=== PATIENT | female | born 1945 | race Caucasian/White ===

== ENCOUNTER 2017-01-05 16:12 | Emergency (ER) | payer MEDICARE, OTHER | END 2017-01-05 18:50 | disposition home or self-care (01) | DX: R55 Syncope and collapse (principal); R03.0 Elevated blood-pressure reading, without diagnosis of hypertension; E11.9 Type 2 diabetes mellitus without complications; Z86.2 Personal history of diseases of the blood and blood-forming organs and certain disorders involving the immune mechanism ==

== ENCOUNTER 2020-02-04 14:53 | Emergency (ER) | payer MEDICARE, OTHER ==
[2020-02-04 15:02] VITALS: BP 156/96
--- NOTE | 2020-02-04 15:24 | ED Physician Documentation ---
PD HPI UPPER EXT INJURY - Stated complaint Stated Complaint: RT HAND PX - Chief complaint Chief Complaint: Ext Problem - History obtained from History obtained from: Patient - History of Present Illness Location: Right, Hand Timing - details: Gradual onset Pain level max: 4 Pain level now: 3 Improved by: Rest Worsened by: Moving, Palpating Associated symptoms: No: Weakness, Numbness, Tingling, Swelling, Discolored Contributing factors: No: Anticoagulated - Additonal information Additional information: 74-year-old female states that she has had a right hand pain for the past month or so. She states that she saw her doctor who thought it might be trigger finger. She is concerned there may be something broken in her hand that she does not know about. Worse with movement and better with rest. She states she is put a splint on it at night which seems to help somewhat. Most of the pain is at the fourth MCP joint. No swelling. No erythema. Does not recall any trauma. Patient is right-handed Review of Systems Constitutional: denies: Fever, Chills GI: denies: Vomiting PD PAST MEDICAL HISTORY - Past Medical History Past Medical History: No - Past Surgical History Past Surgical History: No - Present Medications Home Medications: Ambulatory Orders Medication Instructions Recorded Confirmed Meloxicam [Mobic] 7.5 mg PO BID PRN #20 tablet 02/04/20 - Allergies Allergies/Adverse Reactions: Allergies Allergy/AdvReac Type Severity Reaction Status Date / Time Penicillins Allergy Unknown Verified 01/05/17 16:25 tetracycline Allergy Unknown Verified 01/05/17 16:25 - Living Situation Living Situation: reports: With family Living Arrangement: reports: At home PD ED PE NORMAL - Vitals Vital signs reviewed: Yes - General General: Alert and oriented X 3, No acute distress - HEENT HEENT: Moist mucous membranes - Derm Derm: Warm and dry - Extremities Extremities: Other (Right hand - No deformity. Mild tenderness near the fourth metacarpal phalangeal joint. Neurovascular intact.) - Neuro Neuro: Alert and oriented X 3 - Psych Psych: Normal mood, Normal affect Results - Vitals Vitals: Vital Signs - 24 hr 02/04/20 14:59 Temperature 36.3 C L Heart Rate 64 Respiratory 16 Rate Blood Pressure 156/96 H O2 Saturation 96 Oxygen O2 Source Room air - Rads (name of study) Right hand x-ray Radiology: Prelim report reviewed, EMP read contemporaneously, See rad report (Arthritis of the right hand) PD MEDICAL DECISION MAKING - ED course Complexity details: reviewed results, re-evaluated patient, considered differential, d/w patient ED course: 74-year-old female with what appears to be osteoarthritis of the right hand. No acute findings on x-ray. Will place on meloxicam. Patient counseled regarding signs and symptoms for which I believe and urgent re-evaluation would be necessary. Patient with good understanding of and agreement to plan and is comfortable going home at this time This document was made in part using voice recognition software. While efforts are made to proofread this document, sound alike and grammatical errors may occur. Departure - Departure Disposition: 01 Home, Self Care Clinical Impression: Osteoarthritis Qualifiers: Osteoarthritis location: hand Osteoarthritis type: unspecified Laterality: right Qualified Code(s): M19.041 - Primary osteoarthritis, right hand Condition: Good Instructions: ED Degenerative Joint Disease Follow-Up: ISABEL GARCIA MD [Primary Care Provider] - Within 1 week Prescriptions: Meloxicam [Mobic] 7.5 mg PO BID PRN #20 tablet PRN Reason: Pain Comments: Use the medications as prescribed. See if this helps her symptoms. You do appear to have arthritis in the hand. Discharge Date/Time: 02/04/20 15:58
--- NOTE | 2020-02-04 15:41 | XRAY Report ---
Reason: R hand pain Procedure Date: 02/04/2020 Accession Number: [id number] / [id number] Procedure: XR - Hand 3 View RT CPT Code: Final Report FULL RESULT: EXAM: RIGHT HAND RADIOGRAPHY EXAM DATE: 02/04/2020 03:29 PM. CLINICAL HISTORY: Right hand pain. COMPARISON: None. TECHNIQUE: 3 views. FINDINGS: Generalized bone demineralization. No fracture or subluxation identified. Mild narrowing of the interphalangeal joints throughout the hand. Mild narrowing of the first carpometacarpal articulation. Cystic change within the scaphoid. Mild narrowing of the radiocarpal articulation. No subcutaneous radiopaque foreign bodies. IMPRESSION: Mild degenerative changes throughout the hand. RADIA
== END 2020-02-04 15:58 | disposition home or self-care (01) ==
LOC: ED 14:53
DX: M19.041 Primary osteoarthritis, right hand (principal)
CPT/HCPCS: 99283; 99284

== ENCOUNTER 2021-04-03 08:00 | Outpatient (CLI) | payer MEDICARE, OTHER ==
--- NOTE | 2021-04-04 10:35 | XRAY Report ---
PROCEDURE: Hand 3 View RT INDICATIONS: SPRAIN OF RIGHT HAND TECHNIQUE: 3 views of the hand(s) acquired. COMPARISON: X-ray hand 02/04/2020 FINDINGS: Bones: No fractures or dislocations. No suspicious bony lesions. Scattered IP degenerative changes are present. Soft tissues: No suspicious soft tissue calcifications. IMPRESSION: Arthritic changes. No visualized acute fracture or dislocation. However, occult injury cannot be excl uded. Recommend short interval imaging follow-up in 7-10 days as clinically indicated for additional evaluation. Reviewed by: Jeanne Lacey MD on 04/04/2021 10:33 AM PDT Approved by: Jeanne Lacey MD on 04/04/2021 10:33 AM PDT Station ID: [id number]
== END 2021-04-03 23:59 | disposition home or self-care (01) ==
LOC: DI.S 08:00
PROVIDERS: ATTEND Physician Assistant
DX: M19.041 Primary osteoarthritis, right hand (principal)

== ENCOUNTER 2022-04-25 13:22 | Emergency (ER) | payer MEDICARE, OTHER ==
[2022-04-25 13:48] VITALS: BP 133/70
[2022-04-25 15:05] LABS: BASOPHILS % (AUTO) 0.4 %; EOSINOPHILS # (AUTO) 0.2 10^3/uL (0.0-0.7); EOSINOPHILS % (AUTO) 1.9 %; HCT - HEMATOCRIT 42.4 % (37.0-47.0); HGB - HEMOGLOBIN 13.5 g/dL (12.0-16.0); MEAN CORPUSCULAR HEMOGLOBIN 28.1 pg (27.0-31.0); MEAN CORPUSCULAR HGB CONC 31.8 g/dL (32.0-36.0); MEAN CORPUSCULAR VOLUME 88.3 fL (81.0-99.0); MEAN PLATELET VOLUME 9.8 fL (7.9-10.8); MONOCYTES # (AUTO) 0.8 10^3/uL (0.0-1.0); MONOCYTES % (AUTO) 9.2 %; NEUTROPHILS # (AUTO) 5.3 10^3/uL (1.5-6.6); NEUTROPHILS % (AUTO) 64.4 %; PLT - PLATELET COUNT 265 10^3/uL (130-450); RED CELL DISTRIBUTION WIDTH 13.2 % (12.0-15.0); WHITE BLOOD COUNT 8.3 x10^3/uL (4.8-10.8)
[2022-04-25 15:13] LABS: ALBUMIN 3.7 g/dL (3.2-5.5); ALBUMIN/GLOBULIN RATIO 1.2 (1.0-2.2); BILIRUBIN,TOTAL 0.7 mg/dL (0.2-1.0); CALCIUM 9.2 mg/dL (8.5-10.3); MAGNESIUM 1.9 mg/dL (1.7-2.8); TOTAL PROTEIN 6.9 g/dL (6.7-8.2)
--- NOTE | 2022-04-25 15:15 | ED Physician Documentation ---
PD HPI HEAD INJURY - Stated complaint Stated Complaint: GLF - Chief complaint Chief Complaint: Trauma Hd/Nk - History obtained from History obtained from: Patient - Additional information Additional information: 76-year-old woman with history of hypertension, migraines was working heavily outside 6 days ago. She was resting and then she briefly felt dizzy and then passed out with a goose egg on her left forehead. She is had on and off headaches ever since but there was no associated chest pain, trouble breathing or recurrent dizziness. No history of syncope. Review of Systems Constitutional: denies: Fever, Chills, Fatigue Cardiac: denies: Chest pain / pressure, Palpitations Respiratory: denies: Dyspnea, Cough GI: denies: Abdominal Pain, Nausea, Vomiting, Bloody / black stool Musculoskeletal: denies: Neck pain, Back pain Neurologic: reports: Syncope, Headache PD PAST MEDICAL HISTORY - Past Surgical History Past Surgical History: No - Present Medications Home Medications: Ambulatory Orders Medication Instructions Recorded Confirmed Meloxicam [Mobic] 7.5 mg PO BID PRN #20 tablet 02/04/20 - Allergies Allergies/Adverse Reactions: Allergies Allergy/AdvReac Type Severity Reaction Status Date / Time Penicillins Allergy Unknown Verified 04/25/22 13:48 tetracycline Allergy Unknown Verified 04/25/22 13:48 - Social History Does the pt smoke?: No Smoking Status: Never smoker PD ED PE NORMAL - Vitals Vital signs reviewed: Yes - General General: Alert and oriented X 3, No acute distress - HEENT HEENT: PERRL, EOMI, Other (Bruising on the left forehead) - Neck Neck: Supple, no meningeal sign, No bony TTP - Cardiac Cardiac: RRR, No murmur - Respiratory Respiratory: No respiratory distress, Clear bilaterally - Abdomen Abdomen: Normal bowel sounds, Soft, Non tender - Back Back: No CVA TTP, No spinal TTP - Derm Derm: Normal color, Warm and dry - Extremities Extremities: No edema, No calf tenderness / cord - Neuro Neuro: Alert and oriented X 3, Normal speech Eye Opening: Spontaneous Motor: Obeys Commands Verbal: Oriented GCS Score: 15 - Psych Psych: Normal mood Results - Vitals Vitals: Vital Signs - 24 hr 04/25/22 13:40 Temperature 36.2 C L Heart Rate 73 Respiratory 14 Rate Blood Pressure 133/70 H O2 Saturation 96 Oxygen O2 Source Room air - EKG (time done) 1540 Rate: Rate (enter#) (75) Rhythm: NSR [place]: Normal Intervals: Normal AR QRS: Low voltage Ischemia: Normal ST segments - Labs Labs: Laboratory Tests 04/25/22 04/25/22 14:56 14:56 WBC 8.3 RBC 4.80 Hgb 13.5 Hct 42.4 MCV 88.3 MCH 28.1 MCHC 31.8 L RDW 13.2 Plt Count 265 MPV 9.8 Neut # (Auto) 5.3 Lymph # (Auto) 2.0 [place] # (Auto) 0.8 Eos # (Auto) 0.2 Baso # (Auto) 0.0 Absolute Nucleated RBC 0.00 Nucleated RBC % 0.0 Sodium 139 Potassium 4.0 Chloride 106 Carbon Dioxide 26 Anion Gap 7.0 BUN 14 Creatinine 1.0 Estimated GFR (MDRD) 54 L Glucose 103 H Calcium 9.2 Magnesium 1.9 Total Bilirubin 0.7 AST 18 ALT 14 Alkaline Phosphatase 65 Total Protein 6.9 Albumin 3.7 Globulin 3.2 Albumin/Globulin Ratio 1.2 PD MEDICAL DECISION MAKING - ED course ED course: 76-year-old woman had a syncopal episode while working outside 6 days ago. Now with a normal exam but persistent headaches after head injury related to same. Work-up here was negative and close follow-up was advised. Departure - Departure Disposition: 01 Home, Self Care Clinical Impression: Syncope, Head injury Condition: Good Record reviewed to determine appropriate education?: Yes Instructions: ED Fainting Unkn Cause Comments: You were seen today for a passing out episode ("syncopal episode"). You were worked up with an EKG which looked okay, basic labs which were normal, and given the head injury and persistent headaches, a CT of the head which was unremarkable. You should still follow-up with your primary care physician, call tomorrow for the next available appointment. Return for new or worsening symptoms. Discharge Date/Time: 04/25/22 16:22
--- NOTE | 2022-04-25 15:50 | CT Report ---
PROCEDURE: HEAD WO INDICATIONS: Head injury TECHNIQUE: Noncontrast 4.5 mm thick angled axial sections acquired from the foramen magnum to the vertex. For r adiation dose reduction, the following was used: automated exposure control, adjustment of mA and/or kV according to patient size. COMPARISON: None. FINDINGS: Image quality: Excellent. CSF spaces: Basal cisterns are patent. No extra-axial fluid collections. Ventricles are normal in size and shape. Brain: No midline shift. No intracranial masses or hemorrhage. Kolb-white matter interface is norm al. Skull and face: Calvarium and visualized facial bones are intact, without suspicious lesions. Sinuses: Visualized sinuses and mastoids are clear. IMPRESSION: No acute intracranial finding. Reviewed by: Denis Carballo MD on 04/25/2022 3:49 PM PDT Approved by: Denis Carballo MD on 04/25/2022 3:49 PM PDT Station ID: [id number]
== END 2022-04-25 16:22 | disposition home or self-care (01) ==
LOC: ED 13:22
DX: S09.90XA Unspecified injury of head, initial encounter (principal); R55 Syncope and collapse; X58.XXXA Exposure to other specified factors, initial encounter
CPT/HCPCS: 36415; 80053; 83735; 85025; 93005; 99282; 99284

== ENCOUNTER 2023-03-29 11:04 | Emergency (ER) | payer MEDICARE, OTHER ==
[2023-03-29] MEDS ORDERED: SODIUM CHLORIDE 0.9% 1,000 ML IV STA (11:36)
[2023-03-29 11:42] LABS: BASOPHILS % (AUTO) 0.5 %; EOSINOPHILS # (AUTO) 0.1 10^3/uL (0.0-0.7); EOSINOPHILS % (AUTO) 1.5 %; HCT - HEMATOCRIT 39.9 % (37.0-47.0); HGB - HEMOGLOBIN 12.5 g/dL (12.0-16.0); LYMPHOCYTES # (AUTO) 1.6 10^3/uL (1.5-3.5); LYMPHOCYTES % (AUTO) 19.9 %; MEAN CORPUSCULAR HGB CONC 31.3 g/dL (32.0-36.0); MEAN CORPUSCULAR VOLUME 86.2 fL (81.0-99.0); MEAN PLATELET VOLUME 9.5 fL (7.9-10.8); MONOCYTES # (AUTO) 0.9 10^3/uL (0.0-1.0); MONOCYTES % (AUTO) 10.9 %; NEUTROPHILS # (AUTO) 5.5 10^3/uL (1.5-6.6); PLT - PLATELET COUNT 353 10^3/uL (130-450); RED BLOOD COUNT 4.63 10^6/uL (4.20-5.40); RED CELL DISTRIBUTION WIDTH 14.7 % (12.0-15.0); WHITE BLOOD COUNT 8.2 x10^3/uL (4.8-10.8)
--- OUTSIDE RECORDS SUMMARY | 2023-03-29 11:50 | EXTERNAL MEDICAL SUMMARY RPT | Continuity of Care Document ---
Author Name Unknown Address [address] [place] [address] Phone Organization [facility] Address [address] [place] [address] Phone Care Team Providers Care Language Instructor Name Role Phone Unavailable Unavailable Unavailable Sonia Miller Pa-C Unavailable Unavailable Carlo Patient Registrar, Soraya Unavailable Unavailable Medications date description facility 2023-01-22 00:00 paroxetine hcl [facility] 2023-01-31 00:00 paroxetine hcl [facility] 2023-01-22 00:00 omeprazole [facility] 2023-01-31 00:00 omeprazole [facility] 2023-01-22 00:00 clobetasol [facility] 2023-01-31 00:00 clobetasol [facility] 2023-01-22 00:00 paroxetine hcl [facility] 2023-01-31 00:00 paroxetine hcl [facility] 2023-01-22 00:00 gabapentin [facility] 2023-01-31 00:00 gabapentin [facility] 2023-01-22 00:00 meloxicam [facility] 2023-01-31 00:00 meloxicam [facility] 2023-01-22 00:00 sumatriptan succinate [facility] 2023-01-31 00:00 sumatriptan succinate [facility] 2023-01-22 00:00 sumatriptan succinate [facility] 2023-01-31 00:00 sumatriptan succinate [facility] 2023-01-22 00:00 gabapentin [facility] 2023-01-31 00:00 gabapentin [facility] 2023-01-22 00:00 omeprazole [facility] 2023-01-31 00:00 omeprazole [facility] 2023-01-22 00:00 meloxicam [facility] 2023-01-31 00:00 meloxicam [facility] 2023-01-22 00:00 clobetasol [facility] 2023-01-31 00:00 clobetasol [facility] 2023-01-22 00:00 paroxetine hcl [facility] 2023-01-31 00:00 paroxetine hcl [facility] 2023-01-22 00:00 gabapentin [facility] 2023-01-31 00:00 gabapentin [facility] 2023-01-22 00:00 paroxetine hcl [facility] 2023-01-31 00:00 paroxetine hcl [facility] 2023-01-22 00:00 omeprazole [facility] 2023-01-31 00:00 omeprazole [facility] 2023-01-22 00:00 sumatriptan succinate [facility] 2023-01-31 00:00 sumatriptan succinate [facility] 2023-01-22 00:00 omeprazole [facility] 2023-01-31 00:00 omeprazole [facility] 2023-01-22 00:00 meloxicam [facility] 2023-01-31 00:00 meloxicam [facility] 2023-01-22 00:00 sumatriptan succinate [facility] 2023-01-31 00:00 sumatriptan succinate [facility] 2023-01-22 00:00 meloxicam [facility] 2023-01-31 00:00 meloxicam [facility] 2023-01-22 00:00 gabapentin [facility] 2023-01-31 00:00 gabapentin [facility] 2023-01-22 00:00 clobetasol [facility] 2023-01-31 00:00 clobetasol [facility] 2023-01-22 00:00 clobetasol [facility] 2023-01-31 00:00 clobetasol [facility] Problems date description facility 2023-01-22 00:00 Contusion of left hand [facility] 2023-01-22 00:00 Contusion of hand(s) [facility] 2023-01-22 00:00 Contusion of left martin nd, initial encounter [facility] Procedures date description facility 2023-01-22 00:00 Visit Code Hold [facility] Social History date description facility 2023-01-22 00:00 Never smoker [facility] Vital Signs date measurement value units 2023-01-22 00:00 BMI 27.65 kg/m2 2023-01-22 00:00 BP_diastolic 71 mmHg 2023-01-22 00:00 BP_systolic 115 mmHg 2023-01-22 00:00 heart_rate 80 /min 2023-01-22 00:00 height_metric 177.8 cm 2023-01-22 00:00 height_standard 70 in 2023-01-22 00:00 respiration_rate 16 /min 2023-01-22 00:00 temperature_metric 36.11 C 2023-01-22 00:00 temperature_standard 97 F 2023-01-22 00:00 weight_metric 87.09 kg 2023-01-22 00:00 weight_standard 192 lb
[2023-03-29 11:53] LABS: ALBUMIN 3.3 g/dL (3.2-5.5); ALBUMIN/GLOBULIN RATIO 0.8 (1.0-2.2); BILIRUBIN,TOTAL 0.5 mg/dL (0.2-1.0); POTASSIUM 3.6 mmol/L (3.5-5.0); TOTAL PROTEIN 7.5 g/dL (6.7-8.2)
--- NOTE | 2023-03-29 11:57 | ED Physician Documentation ---
History of Present Illness - Stated complaint Stated Complaint: LIGHT HEADED/CLAMY/WEAK - Chief complaint Chief Complaint: Neuro - History obtained from History obtained from: Patient - Additonal information Additional information: Patient is a 77-year-old female presenting for evaluation of feeling lightheaded for the past several weeks. Patient states that she had back surgery 5 weeks ago for a herniated disc. She went home the same day. She reports shortly thereafter she has developed looser stools with 3-4 episodes of stools per day. Denies blood in her stools. She has been feeling lightheaded particularly with standing. Denies any syncope or head injury. No headache. No chest pain or difficulty breathing.No vomiting. No cough, congestion, dysuria, urinary retention. Denies numbness or tingling To extremities. Review of Systems Constitutional: denies: Fever Cardiac: denies: Chest pain / pressure Respiratory: denies: Dyspnea GI: denies: Abdominal Pain : reports: Frequency. denies: Dysuria Musculoskeletal: denies: Extremity swelling Neurologic: denies: Syncope, Head injury PD PAST MEDICAL HISTORY - Past Surgical History Past Surgical History: No - Present Medications Home Medications: Ambulatory Orders Medication Instructions Recorded Confirmed Meloxicam [Mobic] 7.5 mg PO BID PRN #20 tablet 02/04/20 Nitrofurantoin [Macrobid] 1 cap PO BID #10 cap 03/29/23 - Allergies Allergies/Adverse Reactions: Allergies Allergy/AdvReac Type Severity Reaction Status Date / Time Penicillins Allergy Unknown Verified 04/25/22 13:48 Sulfa (Sulfonamide Allergy Unknown Verified 03/29/23 11:15 Antibiotics) tetracycline Allergy Unknown Verified 04/25/22 13:48 - Social History Does the pt smoke?: No Smoking Status: Never smoker PD ED PE NORMAL - General General: Alert and oriented X 3, No acute distress, Well developed/nourished - HEENT HEENT: Atraumatic, PERRL, EOMI, Moist mucous membranes, Pharynx benign - Neck Neck: Supple, no meningeal sign, No bony TTP, C-Spine cleared by NEXUS criteria - Cardiac Cardiac: RRR, No murmur, Strong equal pulses - Respiratory Respiratory: No respiratory distress, Clear bilaterally - Abdomen Abdomen: Soft, Non tender - Back Back: No spinal TTP - Derm Derm: Warm and dry - Extremities Extremities: No tenderness to palpate, No edema - Neuro Neuro: Alert and oriented X 3, film masker 2-12 intact, No motor deficit, No sensory deficit, Normal speech Results - Vitals Vitals: Vital Signs - 24 hr 03/29/23 03/29/23 03/29/23 11:10 12:05 13:31 Temperature 36.8 C Heart Rate 85 82 Heart Rate [ 93 Sitting] Heart Rate [ 92 Standing] Heart Rate [ 87 Supine] Respiratory 16 17 Rate Blood Pressure 138/81 H 137/76 H Blood Pressure 144/91 H [Sitting] Blood Pressure 110/72 [Standing] Blood Pressure 154/91 H [Supine] O2 Saturation 100 97 Oxygen O2 Source Room air - EKG (time done) 1111 EKG releavant findings:: EKG personally interpreted by author of this note. Relevant findings are: Rate 95, normal sinus rhythm, no STEMI, QTc 476 Rate: Rate (enter#) (95) Rhythm: NSR Ischemia: No: ST elevation c/w ischemia - Labs Labs: Laboratory Tests 03/29/23 03/29/23 03/29/23 11:35 11:35 11:56 WBC 8.2 RBC 4.63 Hgb 12.5 Hct 39.9 MCV 86.2 MCH 27.0 MCHC 31.3 L RDW 14.7 Plt Count 353 MPV 9.5 Neut # (Auto) 5.5 Lymph # (Auto) 1.6 [place] # (Auto) 0.9 Eos # (Auto) 0.1 Baso # (Auto) 0.0 Absolute Nucleated RBC 0.00 Nucleated RBC % 0.0 Sodium 138 Potassium 3.6 Chloride 102 Carbon Dioxide 27 Anion Gap 9.0 BUN 15 Creatinine 1.0 Estimated GFR (MDRD) 54 L Glucose 162 H Calcium 9.0 Total Bilirubin 0.5 AST 15 ALT 11 Alkaline Phosphatase 82 Total Protein 7.5 Albumin 3.3 Globulin 4.2 Albumin/Globulin Ratio 0.8 L Lipase 34 Urine Color YELLOW Urine Clarity CLEAR Urine pH 7.0 Ur Specific [place] 1.015 Urine Protein 30 H Urine Glucose (UA) NEGATIVE Urine Ketones TRACE Urine Occult Blood NEGATIVE Urine Nitrite NEGATIVE Urine Bilirubin NEGATIVE Urine Urobilinogen 1 (NORMAL) Ur Leukocyte Esterase SMALL H Urine RBC 0-5 Urine WBC 6-10 H Ur Squamous Epith Cells FEW Squamous Urine Bacteria Few Ur Microscopic Review INDICATED Urine Culture Comments INDICATED PD Medical Decision Making - ED course Complexity details: reviewed results, re-evaluated patient, d/w patient ED course: Pt is a 77-year-old female presenting for evaluation of episodic lightheadedness for the past several weeks.She is ambulatory here. Her vital signs appear stable. No focal neurologic deficits and no symptoms to suggest a stroke. EKG was reviewed which is a normal sinus rhythm. No chest pain to suggest ACS.No associated symptoms to suggest pulmonary embolism. Abdominal exam is benign.CBC, chemistries and urine analysis were obtained and reviewed. Urine does have some markers for infection and culture is pending. Patient does report having some increased urinary frequency recently. Thus I will start her on antibiotics for UTI. Patient had reported recently having loose stools but was unable to give a specimen here. She is feeling better with IV fluids here. She was counseled on need for close follow-up with PCP as well as concerning symptoms to return for. Departure - Departure Disposition: 01 Home, Self Care Clinical Impression: Lightheadedness, UTI (urinary tract infection) Condition: Stable Instructions: ED Dizziness UKO, ED UTI Cystitis Female Prescriptions: Nitrofurantoin [Macrobid] 1 cap PO BID #10 cap Comments: Your labs today are overall reassuring. Your urine does have some markers of infection and given some frequency that you have had with your urination we are going to start you on an antibiotic. Have sent this prescription to [facility] in [place]. We will also send the urine for culture. We will notify you if you need a different antibiotic. I would recommend close follow-up with your primary care provider given the duration of your symptoms. Return to the emergency department with any worsening. Discharge Date/Time: 03/29/23 13:38
[2023-03-29 12:13] LABS: BILIRUBIN,URINE NEGATIVE (NEGATIVE); GLUCOSE, URINE (UA) NEGATIVE (NEGATIVE); KETONES,URINE (UA) TRACE mg/dL (NEGATIVE); LEUKOCYTE ESTERASE, URINE SMALL (NEGATIVE); NITRITE,URINE NEGATIVE (NEGATIVE); OCCULT BLOOD,URINE NEGATIVE (NEGATIVE); PROTEIN,URINE 30 mg/dL (NEGATIVE); UROBILINOGEN,URINE 1 (NORMAL) E.U./dL (NORMAL)
[2023-03-29 12:47] LABS: CLARITY,URINE CLEAR (CLEAR)
[2023-03-29 12:48] LABS: BACTERIA,URINE Few /HPF (None Seen); RBC,URINE 0-5 /HPF (0-5); SQUAMOUS EPITHELIAL CELL,UR FEW Squamous (<= Few)
[2023-03-29 13:34] VITALS: BP 137/76
== END 2023-03-29 13:38 | disposition home or self-care (01) ==
LOC: ED 11:04 → SUPCPDRO 11:04 → ED 13:38
DX: R42 Dizziness and giddiness (principal); N39.0 Urinary tract infection, site not specified
CPT/HCPCS: 36415; 80053; 81001; 81003; 83690; 85025; 87086; 93005; 99284

== ENCOUNTER 2024-02-27 08:54 | Emergency (ER) | payer MEDICARE, OTHER ==
--- NOTE | 2024-02-27 10:16 | ED Physician Documentation ---
History of Present Illness - Stated complaint Stated Complaint: RT HIP PX - Chief complaint Chief Complaint: Ext Problem - History obtained from History obtained from: Patient - Additonal information Additional information: 78-year-old female presents with 1 day of gradually worsening atraumatic right hip pain.Able to ambulate. Not improved with some leftover oxycodone that she had at home. Review of Systems Constitutional: denies: Fever, Chills Cardiac: denies: Chest pain / pressure, Palpitations, Calf pain Respiratory: denies: Dyspnea, Cough, Wheezing GI: denies: Abdominal Pain, Nausea, Vomiting : denies: Dysuria, Frequency, Hesitancy Musculoskeletal: reports: Joint pain. denies: Neck pain, Back pain, Extremity pain, Joint swelling PD PAST MEDICAL HISTORY - Past Medical History Past Medical History: Yes Cardiovascular: Hypertension Endocrine/Autoimmune: HyPOthyroidism Musculoskeletal: Osteoarthritis - Past Surgical History Past Surgical History: Yes Ortho: Hip replacement, Shoulder arthroplasty, Spine surgery - Present Medications Home Medications: Ambulatory Orders Medication Instructions Recorded Confirmed Atorvastatin [Lipitor] 20 mg PO QPM 02/27/24 02/27/24 DULoxetine [Cymbalta] 60 mg PO BID 02/27/24 02/27/24 Gabapentin [Neurontin] 300 mg PO BID 02/27/24 02/27/24 Levothyroxine Sodium [Synthroid] 100 mcg PO DAILY 02/27/24 02/27/24 cephALEXin [Keflex] 500 mg PO TID 02/27/24 02/27/24 metFORMIN [Glucophage] 500 mg PO BIDWM 02/27/24 02/27/24 methocarbamoL [Robaxin] 500 mg PO Q6H #20 tablet 02/27/24 traMADol [Ultram] 50 mg PO Q8H PRN #9 tablet 02/27/24 traZODone [Desyrel] 50 mg PO HS 02/27/24 02/27/24 - Allergies Allergies/Adverse Reactions: Allergies Allergy/AdvReac Type Severity Reaction Status Date / Time Penicillins Allergy Unknown Verified 02/27/24 09:25 Sulfa (Sulfonamide Allergy Unknown Verified 02/27/24 09:25 Antibiotics) tetracycline Allergy Unknown Verified 02/27/24 09:25 - Social History Does the pt smoke?: No Smoking Status: Never smoker Does the pt drink ETOH?: Yes Does the pt have substance abuse?: No - Immunizations Immunizations are current?: No PD ED PE NORMAL - Vitals Vital signs reviewed: Yes - General General: Alert and oriented X 3, No acute distress, Well developed/nourished - Cardiac Cardiac: RRR, Strong equal pulses - Respiratory Respiratory: No respiratory distress, Clear bilaterally - Abdomen Abdomen: Soft, Non tender, Non distended - Extremities Extremities: No deformity, No tenderness to palpate, Normal ROM s pain, No edema - Neuro Neuro: Alert and oriented X 3, care information associate 2-12 intact, No motor deficit, Normal speech Results - Vitals Vitals: Oxygen O2 Source Room air PD Medical Decision Making - ED course Complexity details: re-evaluated patient, considered differential, d/w patient ED course: Right hip pain. Able to ambulate with some discomfort. Patient is here requesting pain medications. Short course sent to pharmacy of choice. Departure - Departure Disposition: 01 Home, Self Care Clinical Impression: Pain of lower extremity Qualifiers: Laterality: right Qualified Code(s): M79.604 - Pain in right leg Condition: Stable Instructions: ED Muscle Pain Leg Cramps Prescriptions: methocarbamoL [Robaxin] 500 mg PO Q6H #20 tablet traMADol [Ultram] 50 mg PO Q8H PRN #9 tablet PRN Reason: Pain >8 Comments: You may take up to 1000 mg of Tylenol every 6 hours as needed for pain. Please make sure to take no more than 4000 mg total of Tylenol daily. Short course of pain medications has been sent to your pharmacy since you cannot take ibuprofen. You may also use heat or ice as needed for comfort. Use gentle stretching exercises to help release the muscle. Follow-up with your primary care physician. Forms: PCP List Discharge Date/Time: 02/27/24 11:30
[2024-02-27 11:31] VITALS: BP 142/78; O2SAT 98
== END 2024-02-27 11:30 | disposition home or self-care (01) ==
LOC: ED 08:54
DX: M25.551 Pain in right hip (principal); M79.604 Pain in right leg; I10 Essential (primary) hypertension; E03.9 Hypothyroidism, unspecified; Z79.899 Other long term (current) drug therapy
CPT/HCPCS: 99282; 99283

== ENCOUNTER 2024-05-03 07:40 | Outpatient (CLI) | payer MEDICARE, OTHER | END 2024-05-03 23:59 | disposition critical access hospital (66) | LOC: EMS 07:40 | DX: R53.81 Other malaise (principal); R53.1 Weakness; R63.0 Anorexia | CPT/HCPCS: A0425; A0427 ==

== ENCOUNTER 2024-05-03 08:16 | Emergency (ER) | payer MEDICARE, OTHER ==
--- NOTE | 2024-05-03 08:29 | ED Physician Documentation ---
PD HPI URI - Stated complaint Stated Complaint: GEN WEAKNESS - Chief complaint Chief Complaint: General - History obtained from History obtained from: Patient, EMS - History of Present Illness Timing - onset: How many days ago (2) Timing duration: Days (2) Timing details: Gradual onset, Still present (onset fatigue, malaise, aches, nausea yesteday, much worse today.) Associated symptoms: Chills, Nasal congestion, NVD. No: Fever Contributing factors: No: Sick contact, Travel, Immunocompromised Similar symptoms before: Has not had sx before Recently seen: Not recently seen Review of Systems Constitutional: reports: Chills, Myalgias, Fatigue Nose: reports: Congestion Throat: denies: Sore throat Respiratory: denies: Cough GI: reports: Nausea. denies: Vomiting, Diarrhea Skin: denies: Rash PD PAST MEDICAL HISTORY - Past Medical History Cardiovascular: Hypertension Endocrine/Autoimmune: HyPOthyroidism Musculoskeletal: Osteoarthritis - Past Surgical History Past Surgical History: Yes Ortho: Hip replacement, Shoulder arthroplasty, Spine surgery - Present Medications Home Medications: Ambulatory Orders Medication Instructions Recorded Confirmed Atorvastatin [Lipitor] 20 mg PO QPM 02/27/24 05/03/24 DULoxetine [Cymbalta] 60 mg PO BID 02/27/24 05/03/24 Gabapentin [Neurontin] 300 mg PO BID 02/27/24 05/03/24 Levothyroxine Sodium [Synthroid] 100 mcg PO DAILY 02/27/24 05/03/24 metFORMIN [Glucophage] 500 mg PO BIDWM 02/27/24 05/03/24 traZODone [Desyrel] 50 mg PO HS 02/27/24 05/03/24 Ondansetron Odt [Zofran] 4 mg TL Q6H PRN #20 tablet 05/03/24 - Allergies Allergies/Adverse Reactions: Allergies Allergy/AdvReac Type Severity Reaction Status Date / Time Penicillins Allergy Unknown Verified 05/03/24 08:29 Sulfa (Sulfonamide Allergy Unknown Verified 05/03/24 08:29 Antibiotics) tetracycline Allergy Unknown Verified 05/03/24 08:29 - Social History Does the pt smoke?: No Smoking Status: Never smoker Does the pt drink ETOH?: Yes Does the pt have substance abuse?: No - Immunizations Immunizations are current?: No PD ED PE NORMAL - Vitals Vital signs reviewed: Yes - General General: Alert and oriented X 3, No acute distress (no distress but looks like she is ill/ fatigued), Well developed/nourished - HEENT HEENT: Ears normal, Pharynx benign - Neck Neck: Supple, no meningeal sign, No adenopathy - Cardiac Cardiac: RRR - Respiratory Respiratory: No respiratory distress, Clear bilaterally - Abdomen Abdomen: Soft, Non tender - Derm Derm: Normal color, Warm and dry Results - Vitals Vitals: Oxygen O2 Source Room air - Labs Labs: Laboratory Tests 05/03/24 05/03/24 05/03/24 08:53 08:53 08:55 WBC 9.3 RBC 4.62 Hgb 12.7 Hct 40.2 MCV 87.0 MCH 27.5 MCHC 31.6 L RDW 14.3 Plt Count 265 MPV 10.1 Neut # (Auto) 7.8 H Lymph # (Auto) 0.7 L Gosper # (Auto) 0.8 Eos # (Auto) 0.0 Baso # (Auto) 0.0 Absolute Nucleated RBC 0.00 Nucleated RBC % 0.0 Sodium 135 Potassium 3.3 L Chloride 100 L Carbon Dioxide 25 Anion Gap 10.0 BUN 10 Creatinine 0.9 Estimated GFR (MDRD) 61 L Glucose 119 H Calcium 9.0 Magnesium 1.4 L Total Bilirubin 5.6 H AST 391 H ALT 485 H Alkaline Phosphatase 242 H Ammonia Total Protein 7.3 Albumin 3.6 Globulin 3.7 Albumin/Globulin Ratio 1.0 Lipase 21 Nasal Adenovirus (PCR) NOT DETECTED Nasal B. parapertussis DNA (PCR) NOT DETECTED Nasal Coronavir 229E PCR NOT DETECTED Nasal Coronavir HKU1 PCR NOT DETECTED Nasal Coronavir NL63 PCR NOT DETECTED Nasal Coronavir OC43 PCR NOT DETECTED Nasal Enterovir/Rhinovir PCR NOT DETECTED Nasal Influenza B PCR NOT DETECTED Nasal Influenza A PCR NOT DETECTED Nasal Parainfluen 1 PCR NOT DETECTED Nasal Parainfluen 2 PCR NOT DETECTED Nasal Parainfluen 3 PCR NOT DETECTED Nasal Parainfluen 4 PCR NOT DETECTED Nasal RSV (PCR) NOT DETECTED Nasal B.pertussis DNA PCR NOT DETECTED Nasal C.pneumoniae (PCR) NOT DETECTED Zachary Human Metapneumo PCR NOT DETECTED Nasal M.pneumoniae (PCR) NOT DETECTED Nasal SARS-CoV-2 (PCR) DETECTED A 05/03/24 11:46 WBC RBC Hgb Hct MCV MCH MCHC RDW Plt Count MPV Neut # (Auto) Lymph # (Auto) Gosper # (Auto) Eos # (Auto) Baso # (Auto) Absolute Nucleated RBC Nucleated RBC % Sodium Potassium Chloride Carbon Dioxide Anion Gap BUN Creatinine Estimated GFR (MDRD) Glucose Calcium Magnesium Total Bilirubin AST ALT Alkaline Phosphatase Ammonia 20.0 Total Protein Albumin Globulin Albumin/Globulin Ratio Lipase Nasal Adenovirus (PCR) Nasal B. parapertussis DNA (PCR) Nasal Coronavir 229E PCR Nasal Coronavir HKU1 PCR Nasal Coronavir NL63 PCR Nasal Coronavir OC43 PCR Nasal Enterovir/Rhinovir PCR Nasal Influenza B PCR Nasal Influenza A PCR Nasal Parainfluen 1 PCR Nasal Parainfluen 2 PCR Nasal Parainfluen 3 PCR Nasal Parainfluen 4 PCR Nasal RSV (PCR) Nasal B.pertussis DNA PCR Nasal C.pneumoniae (PCR) Zachary Human Metapneumo PCR Nasal M.pneumoniae (PCR) Nasal SARS-CoV-2 (PCR) - Rads (name of study) abd RUQ US Relevant Findings:: Prelim report reviewed (fatty liver. No acute findings otherwise. ), EMP independent interpretation of test PD Medical Decision Making - ED course Complexity details: re-evaluated patient (she is feeling much better with IV fluids, electrolyte replace. Interesting elevated LFTs without abd pain nor tender. US done to eval and no gallbladder abn nor CBD enlargement. Lipase normal. Given positive COVID, I did not eval for hepatitis separately. Presume multi-system inflammatory process. ), considered differential, d/w patient Reviewed Lab Results: she is not on any medications I would suspect to cause LFT elevateion, even in setting of underhydration (statins, PPIs, some BP meds, etc). Metformin renally cleared and not assoicated with LFT elevation per [facility]. She is given IV fluids, Mag, Potassium, famotidine and Zofran per IV with good improvement in general symptoms and nausea. Departure - Departure Disposition: 01 Home, Self Care Clinical Impression: COVID-19, Weakness, Electrolyte imbalance, Dehydration, Elevated liver enzymes Condition: Stable Record reviewed to determine appropriate education?: Yes Instructions: ED Viral Syndrome Prescriptions: Ondansetron Odt [Zofran] 4 mg TL Q6H PRN #20 tablet PRN Reason: Nausea / Vomiting Comments: You did test positive for COVID. This would be accounting for the majority of your symptoms. However it has had a trickle down affect with the lesser intake and nausea, 2 have affected your electrolytes with a moderately low potassium and magnesium. Add foods higher in these over the next several days. We did give you supplemental amounts in the IV here. We also gave you IV fluids and general for better hydration. Stay well-hydrated and try potassium and magnesium supplements if able or (or basic electrolyte fluids). Regular water is okay combined with some electrolytes and foods. Additionally you do have elevation of your liver enzymes to a moderate degree. Your ultrasound did not show any gallbladder or common bile duct type problems and your pancreas is normal. Presume this is some inflammation related to the COVID infection (which really is a multi system/multiorgan inflammatory process type of virus). Your ammonia level is normal. It would be good to ensure your liver enzymes improve with hydration and as you start getting over the typically worst part of the illness at the beginning. I would suggest having your blood test rechecked in 2 to 3 days. Return to the ER if needed for worse symptoms overall etc. I sent a prescription for ondansetron nausea medicine to your preferred pharmacy. Minimize Tylenol but occasional dose if needed for fevers or pains would be okay. I did look up your metformin and its metabolized by the kidneys so no change in dose needed there. If you do take any cholesterol medicines that and an "statin" then hold those for a week or 2 as they do metabolized by the liver. Your other medicine should be okay. So summary points are: 1. You have COVID and is the main reason for feeling so badly. 2. Maintain good hydration and some added electrolytes or foods with potassium and magnesium in particular 3. Minimal to no acetaminophen/Tylenol 4. Ondansatron if needed for nausea 5. Recheck your blood tests of electrolytes and liver function in 2 to 3 days, as you were low in potassium and Magnesium, and eleveted in liver functions. 6. Return to the ER if worsening generally. Forms: PCP List Discharge Date/Time: 05/03/24 12:38
[2024-05-03] MEDS: FAMOTIDINE 20 MG/2 ML VIAL IVP STA (08:55)
[2024-05-03] MEDS: ONDANSETRON 4 MG/2 ML VIAL IVP STA (08:55)
[2024-05-03] MEDS: SODIUM CHLORIDE 0.9% 1,000 ML IV STA (08:56)
[2024-05-03 09:06] LABS: BASOPHILS % (AUTO) 0.1 %; EOSINOPHILS % (AUTO) 0.2 %; HCT - HEMATOCRIT 40.2 % (37.0-47.0); HGB - HEMOGLOBIN 12.7 g/dL (12.0-16.0); LYMPHOCYTES # (AUTO) 0.7 10^3/uL (1.5-3.5); LYMPHOCYTES % (AUTO) 7.1 %; MEAN CORPUSCULAR HEMOGLOBIN 27.5 pg (27.0-31.0); MEAN CORPUSCULAR HGB CONC 31.6 g/dL (32.0-36.0); MEAN PLATELET VOLUME 10.1 fL (7.9-10.8); MONOCYTES # (AUTO) 0.8 10^3/uL (0.0-1.0); MONOCYTES % (AUTO) 8.6 %; NEUTROPHILS # (AUTO) 7.8 10^3/uL (1.5-6.6); NEUTROPHILS % (AUTO) 83.6 %; PLT - PLATELET COUNT 265 10^3/uL (130-450); RED BLOOD COUNT 4.62 10^6/uL (4.20-5.40); RED CELL DISTRIBUTION WIDTH 14.3 % (12.0-15.0); WHITE BLOOD COUNT 9.3 x10^3/uL (4.8-10.8)
[2024-05-03 09:21] LABS: ALBUMIN 3.6 g/dL (3.2-5.5); BILIRUBIN,TOTAL 5.6 mg/dL (0.2-1.0); CREATININE 0.9 mg/dL (0.6-1.3); MAGNESIUM 1.4 mg/dL (1.7-2.3); POTASSIUM 3.3 mmol/L (3.5-4.5); TOTAL PROTEIN 7.3 g/dL (6.4-8.9)
--- NOTE | 2024-05-03 09:49 | XRAY Report ---
PROCEDURE: Chest 1V INDICATIONS: cough and dyspnea TECHNIQUE: One view of the chest was acquired. COMPARISON: None. FINDINGS: Surgical changes and devices: None. Lungs and pleura: No pleural effusions or pneumothorax. Lungs are clear. Mediastinum: Mediastinal contours appear normal. Heart size is normal. Bones and chest wall: No suspicious bony lesions. Overlying soft tissues appear unremarkable. IMPRESSION: No acute cardiopulmonary process. Reviewed by: Raven Amaral MD on 05/03/2024 8:48 AM CHRISTOPHER Approved by: Raven Amaral MD on 05/03/2024 8:48 AM CHRISTOPHER Station ID: [id number]
[2024-05-03] MEDS: MAGNESIUM SULFATE 2 GRAM 2 GM/50 ML BAG IV ONE (10:17)
[2024-05-03] MEDS: LACTATED RINGERS 1,000 ML IV STA (10:21)
[2024-05-03] MEDS: POTASSIUM CHLOR 10 MEQ/100 ML 10 MEQ/100 ML BAG IV ONE (10:21)
[2024-05-03 10:25] LABS: B. PARAPERTUSSIS- RESP PCR PAN NOT DETECTED; B. PERTUSSIS- RESP PCR PANEL NOT DETECTED; C. PNEUMONIAE- RESP PCR PANEL NOT DETECTED; CORONAVIRUS 229E-RESP PCR NOT DETECTED; CORONAVIRUS HKU1-RESP PCR NOT DETECTED; CORONAVIRUS NL63-RESP PCR NOT DETECTED; CORONAVIRUS OC43-RESP PCR NOT DETECTED; HUMAN METAPNEUMOVIRUS NOT DETECTED; INFLUENZA A- RESP PCR PANEL NOT DETECTED; INFLUENZA B - RESP PCR PANEL NOT DETECTED; M. PNEUMONIAE- RESP PCR PANEL NOT DETECTED; PARAINFLUENZA VIRUS 1 NOT DETECTED; PARAINFLUENZA VIRUS 2 NOT DETECTED; PARAINFLUENZA VIRUS 3 NOT DETECTED; PARAINFLUENZA VIRUS 4 NOT DETECTED; RHINOVIRUS/ENTEROVIRUS NOT DETECTED; RSV- RESP PCR PANEL NOT DETECTED
[2024-05-03 10:28] LABS: SARS-CoV-2 -RESP PCR PANEL DETECTED
--- NOTE | 2024-05-03 11:39 | Ultrasound Report ---
PROCEDURE: Abdomen Limited INDICATIONS: viral illness this week, vomiting, elevated LFTs TECHNIQUE: Real-time focused scanning was performed of the abdomen, with image documentation. COMPARISONS: None. FINDINGS: Liver: The liver is normal in size and morphology but diffusely echogenic. There is no focal hepatic lesion. Gallbladder: No gallstones, sludge, wall thickening or pericholecystic edema. Biliary ducts: Intrahepatic bile ducts are non-dilated. Extrahepatic bile duct caliber measures 3 m m. Normal is 6-7 mm or less in diameter, or 10 mm or less post-cholecystectomy. Pancreas: Visualized portions of the pancreas are sonographically normal. Right kidney: Normal in size and echotexture. Right kidney measures 10.7 cm long. No hydronephrosis or nephrolithiasis. No solid masses. No complex renal cystic lesions which require follow-up. A 2.4 x 2.1 x 1.7 cm simple cyst is shown within the superior vena cava. IVC: Intrahepatic inferior vena cava is patent. Miscellaneous: No free abdominal fluid. IMPRESSION: Hepatic steatosis. Reviewed by: Raven Amaral MD on 05/03/2024 10:38 AM CHRISTOPHER Approved by: Raven Amaral MD on 05/03/2024 10:38 AM CHRISTOPHER Station ID: [id number]
[2024-05-03 12:44] VITALS: BP 142/86; O2SAT 98
== END 2024-05-03 12:38 | disposition home or self-care (01) ==
LOC: ED 08:16
DX: U07.1 COVID-19 (principal); R53.1 Weakness; E87.8 Other disorders of electrolyte and fluid balance, not elsewhere classified; E86.0 Dehydration; R74.8 Abnormal levels of other serum enzymes; I10 Essential (primary) hypertension; E03.9 Hypothyroidism, unspecified; Z79.899 Other long term (current) drug therapy; Z79.84 Long term (current) use of oral hypoglycemic drugs
CPT/HCPCS: 36415; 71045; 76705; 80053; 82140; 83690; 83735; 85025; 87633; 96361; 96365; 96366; 96368; 96375; 99284; 99285; J7120

== ENCOUNTER 2024-05-09 08:49 | Outpatient (CLI) | payer MEDICARE, OTHER ==
[2024-05-09 16:37] LABS: MAGNESIUM 1.7 mg/dL (1.7-2.3)
[2024-05-09 16:43] LABS: ALBUMIN 3.6 g/dL (3.2-5.5); CALCIUM 9.1 mg/dL (8.5-10.3); CREATININE 0.9 mg/dL (0.6-1.3); POTASSIUM 3.9 mmol/L (3.5-4.5); TOTAL PROTEIN 7.3 g/dL (6.4-8.9)
== END 2024-05-09 08:50 | disposition home or self-care (01) ==
LOC: LAB.S 08:49
PROVIDERS: ATTEND Emergency Medicine
DX: U09.9 Post COVID-19 condition, unspecified (principal)
CPT/HCPCS: 36415; 80053; 83735

== ENCOUNTER 2024-06-02 08:00 | Outpatient (CLI) | payer MEDICARE, OTHER ==
--- NOTE | 2024-06-02 15:54 | XRAY Report ---
PROCEDURE: Hip w/Pelvis 2-3V LT INDICATIONS: LEFT HIP PAIN TECHNIQUE: AP view the pelvis and AP and lateral views of the left hip. COMPARISON: None. FINDINGS: Bones: Postsurgical changes from bilateral total hip arthroplasties with hardware components in expe cted positions. Bulky heterotopic ossification is seen adjacent to the left greater trochanter. There is also no osseous irregularity in the adjacent portion of the left lateral acetabulum. Soft tissues: No suspicious soft tissue calcifications. IMPRESSION: Postsurgical changes from bilateral total hip arthroplasties. Hardware components in expected positio ns. Heterotopic ossifications lateral to the left hip. Osseous irregularity at the lateral left acetabulu m and may be related to the adjacent heterotopic ossifications versus nonspecific osteolysis. Reviewed by: Sohail Swanson MD on 06/02/2024 2:53 PM AKMIRIAM Approved by: Sohail Swanson MD on 06/02/2024 2:53 PM CHRISTOPHER Station ID: [id number]
== END 2024-06-02 23:59 | disposition home or self-care (01) ==
LOC: DI.S 08:00
PROVIDERS: ATTEND Physician Assistant
DX: M89.9 Disorder of bone, unspecified (principal); M25.552 Pain in left hip